=== PATIENT | female | born 1970 | race Caucasian/White ===

== ENCOUNTER 2017-12-07 13:33 | Emergency (ER) | payer OTHER ==
--- NOTE | 2017-12-07 14:17 | ER Document Report ---
ED General - General Chief Complaint: Headache >24 hrs old Stated Complaint: HEADACHE Time Seen by Provider: 12/07/17 14:10 TRAVEL OUTSIDE OF THE [place] IN LAST 30 DAYS: No - HPI Notes: 10 throbbing headache without radiation nothing because of the pain get better or worse. Has been going on for about 2 days. Has been associated with profound nausea and vomiting. Patient also has some rib pain from to go exacerbated with the constant emesis. Patient is currently inpatient psychiatric hospital transported here for evaluation for her headache. Was given Phenergan prehospital without improvement in her symptoms. Patient comfortable during my interview no sunglasses or appearance of pain. Patient states she is very dry mouth. - Related Data Allergies/Adverse Reactions: bacitracin [From Neosporin ([id number])] Allergy (Verified 12/07/17 13:37) haloperidol [From Haldol] Allergy (Verified 12/07/17 13:37) ketorolac [From Toradol] Allergy (Verified 12/07/17 13:37) neomycin [From Neosporin ([id number])] Allergy (Verified 12/07/17 13:37) polymyxin B [From Neosporin ([id number])] Allergy (Verified 12/07/17 13:37) silver nitrate Allergy (Verified 12/07/17 13:37) Past Medical History - Social History Smoking Status: Unknown if Ever Smoked Family History: Reviewed & Not Pertinent Review of Systems - Review of Systems Notes: REVIEW OF SYSTEMS: CONSTITUTIONAL: -fevers, -chills EENT: -eye pain, -difficulty swallowing, -nasal congestion CARDIOVASCULAR: -chest pain, -syncope. RESPIRATORY: -cough, -SOB GASTROINTESTINAL: -abdominal pain, +nausea, +vomiting, -diarrhea GENITOURINARY: -dysuria, -hematuria MUSCULOSKELETAL: -back pain, -neck pain SKIN: -rash or skin lesions. HEMATOLOGIC: -easy bruising or bleeding. LYMPHATIC: -swollen, enlarged glands. NEUROLOGICAL: -altered mental status or loss of consciousness, +headache, - neurologic symptoms PSYCHIATRIC: -anxiety, -depression. ALL OTHER SYSTEMS REVIEWED AND NEGATIVE. Physical Exam - Vital signs Vitals: Temp Pulse Resp BP Pulse Ox 99.2 F 106 H 20 121/72 96 12/07/17 13:39 12/07/17 13:39 12/07/17 13:39 12/07/17 13:39 12/07/17 13:39 Course - Re-evaluation Re-evalutation: 12/07/17 15:49 47-year-old female presents with a long-standing migraine from inpatient psychiatric/rehab facility. Patient given antiemetics, fluid resuscitation, analgesia. Feeling much improved able to tolerate oral intake at this time. Patient requesting Dilaudid by name. Patient takes 8 mg oral Dilaudid every 6 hours as needed pain. Declined giving patient Dilaudid at this time. Patient will be discharged home improved 12/07/17 16:31 Patient requests Dilaudid by name. States she came here just to get her Dilaudid. The medicine. Tolerating oral intake. Has given a liter of fluid. Stable vital signs within normal limits will be discharged back to her inpatient psychiatric hospital. - Vital Signs Vital signs: Temp Pulse Resp BP Pulse Ox 98.6 F 74 18 134/66 H 100 12/07/17 16:24 12/07/17 16:24 12/07/17 16:24 12/07/17 16:24 12/07/17 16:24 Discharge - Discharge Clinical Impression: Migraine Qualifiers: Migraine type: unspecified Status migrainosus presence: without status migrainosus Intractability: not intractable Qualified Code(s): G43.909 - Migraine, unspecified, not intractable, without status migrainosus Condition: Stable Instructions: Migraine Headache ([facility]) Additional Instructions: See your PCP
[2017-12-07] MEDS ORDERED: METOCLOPRAMIDE HCL INJ/PF 10 MG/2 ML SDV IV ONE (14:18)
[2017-12-07] MEDS ORDERED: DIPHENHYDRAMINE HCL 50 MG/ML VIAL IV ONE (14:18)
[2017-12-07] MEDS ORDERED: ACETAMINOPHEN 325 MG TABLET PO ONE (14:18)
[2017-12-07] MEDS ORDERED: NORMAL SALINE 1000 ML 1,000 ML IV ONE (14:18)
[2017-12-07] MEDS ORDERED: DEXAMETHASONE SOD PHOS INJ 10 MG/1 ML VIAL IV ONE (14:19)
[2017-12-07 16:25] VITALS: BP 134/66
== END 2017-12-07 16:30 | disposition home or self-care (01) ==
LOC: ER 13:33
DX: G43.909 Migraine, unspecified, not intractable, without status migrainosus (principal); R11.2 Nausea with vomiting, unspecified; R07.81 Pleurodynia
CPT/HCPCS: 99283; 96361; 96374; 96375; J1200; J2765; J7030; J1100